=== PATIENT | male | born 1985 | race African-American/Black ===

== ENCOUNTER 2019-01-24 11:24 | Emergency (ER) | payer OTHER ==
[2019-01-24] MEDS ORDERED: IPRATROPIUM/ALBUTEROL 0.5-2.5 MG/3 ML AMPUL NEB ONE (11:42)
--- NOTE | 2019-01-24 11:43 | ER Document Report ---
ED Medical Screen (RME) - General Chief Complaint: Cough Stated Complaint: COUGH Time Seen by Provider: 01/24/19 11:37 Mode of Arrival: Ambulatory Information source: Patient Notes: Patient presents with an episode of hemoptysis today. Patient states that about a month ago he had a cough for 2 weeks but has been symptom-free for the past 2 weeks. Patient does report of throat discomfort and feels like something is in the back of his throat. Patient denies any fever or shortness of breath. Patient denies any pain I have greeted and performed a rapid initial assessment of this patient. A comprehensive ED assessment and evaluation of the patient, analysis of test results and completion of the medical decision making process will be conducted by additional ED providers. TRAVEL OUTSIDE OF THE [place] IN LAST 30 DAYS: No - Related Data Allergies/Adverse Reactions: No Known Allergies Allergy (Unverified 01/24/19 11:27) Physical Exam - Vital signs Vitals: Temp Pulse Resp BP Pulse Ox 98.0 F 90 20 150/95 H 100 01/24/19 11:33 01/24/19 11:33 01/24/19 11:33 01/24/19 11:33 01/24/19 11:33 - Respiratory Respiratory status: No respiratory distress Breath sounds: Nonproductive cough, Wheezing Course - Vital Signs Vital signs: Temp Pulse Resp BP Pulse Ox 98.0 F 90 20 150/95 H 100 01/24/19 11:33 01/24/19 11:33 01/24/19 11:33 01/24/19 11:33 01/24/19 11:33
--- NOTE | 2019-01-24 12:10 | RADIOLOGY REPORT (SQ) ---
EXAM DESCRIPTION: CHEST 2 VIEWS COMPLETED DATE/TIME: 01/24/2019 12:01 pm REASON FOR STUDY: cough, hemoptysis COMPARISON: None. EXAM PARAMETERS: NUMBER OF VIEWS: two views TECHNIQUE: Digital Frontal and Lateral radiographic views of the chest acquired. RADIATION DOSE: NA LIMITATIONS: none FINDINGS: LUNGS AND PLEURA: No opacities, masses or pneumothorax. No pleural effusion. MEDIASTINUM AND HILAR STRUCTURES: No masses or contour abnormalities. HEART AND VASCULAR STRUCTURES: Heart normal size. No evidence for failure. BONES: Mild a shaped scoliotic curvature of the thoracic spine. HARDWARE: None in the chest. OTHER: No other significant finding. IMPRESSION: NO ACUTE RADIOGRAPHIC FINDING IN THE CHEST. TECHNICAL DOCUMENTATION: JOB ID: [id number] AT [employer]- All Rights Reserved Reading location - IP/workstation name: [email or web address]
--- NOTE | 2019-01-24 14:15 | ER Document Report ---
ED General - General Chief Complaint: Cough Stated Complaint: COUGH Time Seen by Provider: 01/24/19 11:37 Mode of Arrival: Ambulatory Notes: Patient is a 33-year-old male who presents the emergency department with a chief complaint of hemoptysis. He states that he noticed hemoptysis this morning. [place] is visiting from [place] has been in close quarters with a lot of other people. He states that he has had a cough for the past few days and he does have some soreness when he swallows. Patient denies any chest pain, fever, body aches, chills, nausea, vomiting, or diarrhea any other sym ptoms related to this. He states that he did have some vomiting and diarrhea, but it was before his coughing had started and states that he thinks it is due to his MS. He was just worried because he felt like he coughed up a significant amount of blood. The beginning it was dark blood and then it slowly decreased to phlegm. He has had phlegm for the past few days. He does have MS and he takes medication for it. He is also currently on Claritin for seasonal allergies. He does not use any Flonase. Patient denies any smoking or illicit drug use. He does drink 1 beer a day. TRAVEL OUTSIDE OF THE [place] IN LAST 30 DAYS: No - Related Data Allergies/Adverse Reactions: No Known Allergies Allergy (Unverified 01/24/19 11:27) Past Medical History - General Information source: Patient - Social History Smoking Status: Former Smoker Frequency of alcohol use: Social Drug Abuse: None Family History: Reviewed & Not Pertinent Patient has suicidal ideation: No Patient has homicidal ideation: No Renal/ Medical History: Denies: Hx Peritoneal Dialysis Review of Systems - Review of Systems Notes: REVIEW OF SYSTEMS: CONSTITUTIONAL : Denies recent illness. Denies recent unintentional weight loss. Denies fever, chills, or sweats. EENT: Denies eye, ear, throat, or mouth pain, discharge, or symptoms. Denies nasal or sinus congestion. CARDIOVASCULAR: Denies chest pain. RESPIRATORY: See HPI GASTROINTESTINAL: Denies nausea, vomiting, and diarrhea. Denies abdominal pain. Denies constipation. GENITOURINARY: Denies difficulty urinating, burning, blood in urine, urgency or frequency. MUSCULOSKELETAL: Denies neck and back pain. Denies joint pain or swelling. SKIN: Denies rash, itchiness, or lesions HEMATOLOGIC : Denies easy bruising or bleeding. LYMPHATIC: Denies swollen, painful, enlarged glands. NEUROLOGICAL: Denies no numbness or tingling denies weakness. Denies headache. Denies altered mental status. Denies alteration in speech. PSYCHIATRIC: Denies stress, anxiety, alteration in sleep patterns, or depression. All other systems reviewed and negative. Physical Exam - Vital signs Vitals: Temp Pulse Resp BP Pulse Ox 98.0 F 90 20 150/95 H 100 01/24/19 11:33 01/24/19 11:33 01/24/19 11:33 01/24/19 11:33 01/24/19 11:33 - Notes Notes: PHYSICAL EXAMINATION: GENERAL: Appears well, healthy, well-nourished, no acute distress. HEAD: Normocephalic, atraumatic. EYES: PERRL, conjunctiva normal, all extraocular movements intact, sclera nonicteric ENT: Moist mucous membranes. Edema and erythema noted to nasal mucosa. Erythema noted to oropharynx NECK: Supple, no noticeable swelling, redness, rash. Normal range of motion. LUNGS: Equal breath sounds bilaterally and clear to auscultation. No wheezes rales or rhonchi. CARDIOVASCULAR: S1-S2, regular rate, regular rhythm. Radial pulses 2+, normal. ABDOMEN: Normoactive bowel sounds. Soft, nontender, no guarding, no rebound tenderness, and no masses palpated. EXTREMITIES: Normal strength and range of motion, no pitting or edema. No cyanosis. NEUROLOGICAL: Moves all extremities upon command. Strength 5/5 in all extremities. PSYCH: Normal mood, normal affect. SKIN: Warm, dry. No rash, lesions, ulcerations noted. Normal skin turgor. Course - Re-evaluation Re-evalutation: 01/24/19 14:15 Patient is overall well-appearing. Patient's chest x-ray is normal and no pneumonia noted. I have a very low suspicion for a pulmonary emboli. He does have edema and erythema noted to his nasal mucosa. He will be started on Flonase to help with his symptoms, as I think he is having some bleeding from his nasal passages and is draining down his throat, causing him to cough. I also give him Tessalon Perles to help with his cough. He is in agreement with this plan. Follow-up precautions were given. Verbal discharge instructions were given to the patient. They verbalized understanding. They are stable for discharge. - Vital Signs Vital signs: Temp Pulse Resp BP Pulse Ox 98.0 F 90 20 150/95 H 100 01/24/19 11:33 01/24/19 11:33 01/24/19 11:33 01/24/19 11:33 01/24/19 11:33 Discharge - Discharge Clinical Impression: Cough, Sore throat Condition: Stable Disposition: HOME, SELF-CARE Additional Instructions: You are seen today in the emergency department for a cough. Your chest x-ray is normal. Your rapid strep test is negative. If this throat culture comes back positive, you will be called. You have been given Tessalon Perles, medication to help with your cough. Please also start Flonase, medication to help with inflammation in your nose. Please follow-up with your primary care provider when you get back to [place]. If you develop shortness of breath, difficulty breathing, or have any symptoms that are worrisome to you, please return to the emergency department. Prescriptions: Benzonatate [Tessalon Perle 100 mg Capsule] 100 mg PO Q8HP PRN #40 cap PRN Reason: Fluticasone Propionate [Flonase Nasal Ackley 50 Mcg/Ackley 16 gm] 2 sprays NASL DAILY #1 inhaler
[2019-01-24 14:49] VITALS: BP 148/88
== END 2019-01-24 14:30 | disposition home or self-care (01) ==
LOC: ER 11:24
DX: J02.9 Acute pharyngitis, unspecified (principal); R05 Cough; R11.10 Vomiting, unspecified; R19.7 Diarrhea, unspecified; G35 Multiple sclerosis
CPT/HCPCS: 94640; 99283; 87070; 87880; 71046; J7620